=== PATIENT | female | born 1995 | race Asian ===

== ENCOUNTER 2020-12-25 03:05 | Emergency (ER) | payer BC ==
[~2020-12-25] VITALS: Ht 154.9 cm; Wt 49.9 kg
[2020-12-25 03:30] VITALS: BP 111/69
--- NOTE | 2020-12-25 03:46 | NUR ---
PATIENT'S RING IS REMOVED VIA RING CUTTER. FINGER IS SWOLLEN. SENSATIONS ARE INTACT AND EQUAL WITH OPPOSITE FINGER.
--- NOTE | 2020-12-25 04:06 | NUR ---
Patient discharged to home in stable condition. Written and verbal after care instructions given. Patient verbalizes understanding of instruction.
== END 2020-12-25 04:21 | disposition home or self-care (01) ==
LOC: ER 03:08
DX: S60.453A Superficial foreign body of left middle finger, initial encounter (principal); X58.XXXA Exposure to other specified factors, initial encounter; Y93.89 Activity, other specified; Y92.89 Other specified places as the place of occurrence of the external cause; Y99.8 Other external cause status